=== PATIENT | male | born 1965 | race Asian ===

== ENCOUNTER 2019-08-09 15:11 | Inpatient (IN) | payer MEDICAID ==
[~2019-08-09] VITALS: Ht 165.1 cm; Wt 65.5 kg
[2019-08-09 15:11] VITALS: BP_SYST 173
[2019-08-09] MEDS ORDERED: ASPIRIN 81 MG TAB.CHEW PO ONE (15:30)
[2019-08-09 15:35] LABS: BASOPHILS # (AUTO) 0.1 K/uL (0.0-0.2); BASOPHILS % (AUTO) 1.4 % (0.0-2.0); EOSINOPHILS % (AUTO) 0.2 % (0.0-4.0); HEMATOCRIT 51.7 % (36-54); HEMOGLOBIN 17.9 g/dL (14.0-18.0); LYMPHOCYTES % (AUTO) 35.5 % (20.5-51.5); MEAN CORPUSCULAR HEMOGLOBIN 33 pg (27-31); MEAN CORPUSCULAR HGB CONC 35 % (32-36); MEAN CORPUSCULAR VOLUME 94 fL (79.0-98.0); MONOCYTES # (AUTO) 0.6 K/uL (0.0-1.0); MONOCYTES % (AUTO) 7.3 % (1.7-9.3); NEUTROPHILS # (AUTO) 4.7 K/uL (1.8-7.7); NEUTROPHILS % (AUTO) 55.6 % (40.0-70.0); PLATELET COUNT (AUTO) 325 K/uL (130-430); RED CELL DISTRIBUTION WIDTH 14.3 % (9.0-15.0); WHITE BLOOD COUNT (AUTO) 8.5 K/uL (4.8-10.8)
[2019-08-09 15:45] LABS: CALCIUM 9.1 mg/dL (8.4-11.0); CREATININE 0.59 mg/dL (0.55-1.30); POTASSIUM 3.8 mmol/L (3.5-5.1)
[2019-08-09 15:51] LABS: ALBUMIN 3.9 g/dL (3.4-4.8); TOTAL BILIRUBIN 0.9 mg/dL (0.0-1.0)
[2019-08-09] MEDS ORDERED: NITROGLYCERIN 0.4 MG TAB.SUBL SL ONE (16:30)
[2019-08-09] MEDS ORDERED: MORPHINE 4 MG/ML INJ. SYRINGE IVP ONE (16:45)
[2019-08-09] MEDS ORDERED: NITROGLYCERIN 0.4 MG TAB.SUBL SL PRN (20:15)
[2019-08-09 23:07] VITALS: BP_SYST 129
[2019-08-09] MEDS ORDERED: MORPHINE 4 MG/ML INJ. SYRINGE IV ONE (23:30)
[2019-08-10] MEDS ORDERED: MORPHINE 2 MG/ML INJ. SYRINGE IVP PRN (00:30)
[2019-08-10] MEDS ORDERED: ONDANSETRON HCL 4 MG/2 ML VIAL IVP PRN (00:30)
[2019-08-10] MEDS ORDERED: ALBUTEROL SULFATE 0.083% 2.5 MG/3 ML VIAL.NEB INH PRN (00:30)
[2019-08-10] MEDS ORDERED: LORazepam 2 MG/ML VIAL IVP PRN (00:30)
[2019-08-10] MEDS ORDERED: MORPHINE 4 MG/ML INJ. SYRINGE IVP PRN (00:30)
[2019-08-10] MEDS ORDERED: FOLIC ACID 1 MG, THIAMINE HCL 100 MG, MAGNESIUM SULFATE 1 GM, MVI 10 ML in NACL 0.9% 1,... IV SCH (00:45)
[2019-08-10] MEDS: NACL 0.9% 1,000 ML IV SCH ×3 (02:34→20:27)
[2019-08-10] MEDS ORDERED: THIAMINE HCL 100 MG/ML VIAL ONE (03:12)
[2019-08-10] MEDS ORDERED: MVI 10 ML VIAL IV ONE (03:13)
[2019-08-10] MEDS ORDERED: MAGNESIUM SULFATE 1 GM/2 ML VIAL ONE (03:13)
[2019-08-10 03:29] VITALS: BP_SYST 129; BP_SYST 146
[2019-08-10] MEDS ORDERED: FOLIC ACID 5 MG/ML VIAL IV ONE (03:32)
[2019-08-10 07:36] LABS: ALBUMIN 3.7 g/dL (3.4-4.8); CALCIUM 9.1 mg/dL (8.4-11.0); CREATININE 0.46 mg/dL (0.55-1.30); POTASSIUM 4.9 mmol/L (3.5-5.1); TOTAL BILIRUBIN 1.9 mg/dL (0.0-1.0)
[2019-08-10 07:42] VITALS: BP_SYST 152
[2019-08-10 07:50] LABS: BASOPHILS # (AUTO) 0.1 K/uL (0.0-0.2); BASOPHILS % (AUTO) 0.5 % (0.0-2.0); EOSINOPHILS % (AUTO) 0.1 % (0.0-4.0); HEMATOCRIT 48.8 % (36-54); HEMOGLOBIN 16.8 g/dL (14.0-18.0); LYMPHOCYTES # (AUTO) 1.3 K/uL (1.0-5.5); LYMPHOCYTES % (AUTO) 12.4 % (20.5-51.5); MEAN CORPUSCULAR HEMOGLOBIN 33 pg (27-31); MEAN CORPUSCULAR HGB CONC 34 % (32-36); MEAN CORPUSCULAR VOLUME 94 fL (79.0-98.0); MONOCYTES # (AUTO) 0.7 K/uL (0.0-1.0); NEUTROPHILS # (AUTO) 8.1 K/uL (1.8-7.7); PLATELET COUNT (AUTO) 251 K/uL (130-430); RED BLOOD CELL COUNT(AUTO) 5.17 MIL/uL (4.2-6.2); WHITE BLOOD COUNT (AUTO) 10.2 K/uL (4.8-10.8)
[2019-08-10] MEDS ORDERED: MAG-AL HYDROX/SIMETH 30 ML UDC PO PRN ×2 (08:15→08:30)
[2019-08-10] MEDS: ASPIRIN 81 MG TAB.CHEW PO SCH (08:37)
[2019-08-10] MEDS: PANTOPRAZOLE SODIUM 40 MG TAB PO SCH (08:37)
[2019-08-10] MEDS ORDERED: chlordiazePOXIDE HCL 25 MG CAPSULE PO ONE (09:00)
[2019-08-10 12:10] VITALS: BP_SYST 148
[2019-08-10] MEDS: chlordiazePOXIDE HCL 10 MG CAPSULE PO SCH ×2 (14:24→21:02)
[2019-08-10] MEDS ORDERED: chlordiazePOXIDE HCL 25 MG CAPSULE PO SCH (15:00)
[2019-08-10 16:29] VITALS: BP_SYST 152
[2019-08-10 20:00] VITALS: BP_SYST 154
[2019-08-11 08:00] VITALS: BP_SYST 118
[2019-08-11 08:10] LABS: BASOPHILS % (AUTO) 0.4 % (0.0-2.0); EOSINOPHILS # (AUTO) 0.1 K/uL (0.0-0.4); EOSINOPHILS % (AUTO) 0.6 % (0.0-4.0); HEMATOCRIT 48.3 % (36-54); HEMOGLOBIN 16.8 g/dL (14.0-18.0); LYMPHOCYTES % (AUTO) 20.3 % (20.5-51.5); MEAN CORPUSCULAR HEMOGLOBIN 33 pg (27-31); MEAN CORPUSCULAR HGB CONC 35 % (32-36); MEAN CORPUSCULAR VOLUME 94 fL (79.0-98.0); MONOCYTES # (AUTO) 0.7 K/uL (0.0-1.0); NEUTROPHILS # (AUTO) 7.2 K/uL (1.8-7.7); NEUTROPHILS % (AUTO) 71.7 % (40.0-70.0); PLATELET COUNT (AUTO) 191 K/uL (130-430); RED BLOOD CELL COUNT(AUTO) 5.15 MIL/uL (4.2-6.2); RED CELL DISTRIBUTION WIDTH 14.3 % (9.0-15.0); WHITE BLOOD COUNT (AUTO) 10.1 K/uL (4.8-10.8)
[2019-08-11 08:27] LABS: ALBUMIN 3.3 g/dL (3.4-4.8); CALCIUM 8.8 mg/dL (8.4-11.0); CREATININE 0.55 mg/dL (0.55-1.30); POTASSIUM 4.3 mmol/L (3.5-5.1)
[2019-08-11 08:29] LABS: INR 1.2 (0.80-1.20); PROTHROMBIN TIME 11.6 SECS (9.5-12.5)
[2019-08-11] MEDS: NACL 0.9% 1,000 ML IV SCH ×2 (08:37→16:27)
[2019-08-11] MEDS ORDERED: MAGNESIUM SULFATE 1 GM, THIAMINE HCL 100 MG in NS 100 ML IV SCH (09:00)
[2019-08-11] MEDS ORDERED: FOLIC ACID 1 MG, MVI 10 ML in NACL 0.9% 1,000 ML IV SCH (09:00)
[2019-08-11] MEDS: ASPIRIN 81 MG TAB.CHEW PO SCH (09:00)
[2019-08-11] MEDS: PANTOPRAZOLE SODIUM 40 MG TAB PO SCH (09:00)
[2019-08-11] MEDS: chlordiazePOXIDE HCL 10 MG CAPSULE PO SCH ×2 (09:00→15:00)
[2019-08-11 12:46] VITALS: BP_SYST 133
[2019-08-11] MEDS ORDERED: DIPHENHYDRAMINE INJ 50 MG/ML VIAL ONE (13:43)
[2019-08-11] MEDS ORDERED: MIDAZOLAM HCL 5 MG/5 ML VIAL ONE (13:43)
[2019-08-11] MEDS ORDERED: SIMETHICONE 40 MG/0.6 ML ML ONE (13:44)
[2019-08-11] MEDS ORDERED: OMEP20TA20 PO (15:19)
[2019-08-11 16:11] VITALS: BP_SYST 132
[2019-08-11] MEDS: MIDAZOLAM HCL 5 MG/5 ML VIAL ONE ×3 (16:52→16:59)
[2019-08-11] MEDS: MEPERIDINE HCL/PF 100 MG/ML AMP ONE ×3 (16:52→16:59)
[2019-08-11] MEDS ORDERED: MIDAZOLAM HCL 5 MG/ML VIAL (VERSED) IV ONE (19:15)
[2019-08-11 19:30] VITALS: BP_SYST 132
== END 2019-08-11 20:20 | disposition home or self-care (01) | DRG 241 ==
LOC: SED 15:11 → STU 19:40
PROVIDERS: ADMIT Internal Medicine Hospice and Palliative Medicine; ATTEND Internal Medicine Hospice and Palliative Medicine
PROC: 0DB68ZX Excision of Stomach, Via Natural or Artificial Opening Endoscopic, Diagnostic (ICD-10-PCS; principal; 2019-08-11 14:00)
DX: K29.70 Gastritis, unspecified, without bleeding (principal); F10.239 Alcohol dependence with withdrawal, unspecified; M94.0 Chondrocostal junction syndrome [Tietze]; F17.200 Nicotine dependence, unspecified, uncomplicated; K80.20 Calculus of gallbladder without cholecystitis without obstruction; K21.0 Gastro-esophageal reflux disease with esophagitis; K44.9 Diaphragmatic hernia without obstruction or gangrene; Z79.82 Long term (current) use of aspirin; Z82.3 Family history of stroke; Z71.6 Tobacco abuse counseling; Z87.11 Personal history of peptic ulcer disease; Z79.899 Other long term (current) drug therapy
CPT/HCPCS: 36415; 43239; 71045; 76700-TC; 80053; 80061; 82550-TC; 83880; 84484; 85025; 85610-TC; 85730-TC; 88305; 88312; 88313; 93005; 93306; 96374; 99285; G0378; J1200; J2175; J2250; J2270; J3411; J3475; J3490; J7030

== ENCOUNTER 2024-04-27 06:49 | Day surgery (SDC) | payer MEDICAID ==
[~2024-04-27] VITALS: Ht 172.7 cm; Wt 59.0 kg
[~2024-04-27 06:49] MED LIST: OMEP20TA20 PO
[2024-04-27] MEDS ORDERED: MEPERIDINE 100 MG INJ. 100 MG/ML VIAL ONE (07:29)
[2024-04-27] MEDS ORDERED: MIDAZOLAM HCL 5 MG/5 ML VIAL ONE (07:30)
[2024-04-27 13:18] VITALS: O2SAT 98
[2024-04-27 13:58] VITALS: BP_SYST 153; PULSE 78; RESP 18; TEMP 97.7
== END 2024-04-27 10:40 | disposition home or self-care (01) ==
LOC: SDS 06:49 → SMU 06:52 → SDS 10:40
PROVIDERS: ATTEND Student in an Organized Health Care Education/Training Program
DX: K70.30 Alcoholic cirrhosis of liver without ascites (principal); K29.50 Unspecified chronic gastritis without bleeding; I85.00 Esophageal varices without bleeding; K29.90 Gastroduodenitis, unspecified, without bleeding; G40.909 Epilepsy, unspecified, not intractable, without status epilepticus; Z79.899 Other long term (current) drug therapy
CPT/HCPCS: 43244; 43239; 88305; 88312; 88313; 99152; G0378; J2250; J2175

== ENCOUNTER 2024-06-10 07:28 | Day surgery (SDC) | payer MEDICAID ==
[~2024-06-10] VITALS: Ht 167.6 cm; Wt 59.0 kg
[2024-06-10] MEDS ORDERED: MEPERIDINE 100 MG INJ. 100 MG/ML VIAL ONE (08:11)
[2024-06-10] MEDS ORDERED: MIDAZOLAM HCL 5 MG/5 ML VIAL ONE (08:11)
[2024-06-10 10:00] VITALS: O2SAT 95
[2024-06-10 13:27] VITALS: BP_SYST 154; PULSE 87; RESP 9
== END 2024-06-10 11:21 | disposition home or self-care (01) ==
LOC: SMU 07:28 → SDS 07:28
PROVIDERS: ATTEND Student in an Organized Health Care Education/Training Program
DX: K74.69 Other cirrhosis of liver (principal); I85.10 Secondary esophageal varices without bleeding; K29.60 Other gastritis without bleeding; K21.9 Gastro-esophageal reflux disease without esophagitis; F17.210 Nicotine dependence, cigarettes, uncomplicated; Z79.899 Other long term (current) drug therapy
CPT/HCPCS: 43244; 99152; G0378; J2250; J2175